=== PATIENT | male | born 1990 | race Caucasian/White ===

== ENCOUNTER 2022-05-03 19:45 | Emergency (ER) | payer SELFPAY ==
[2022-05-03] MEDS ORDERED: Acetaminophen 500 MG TAB ONE (20:55)
[2022-05-03] MEDS ORDERED: Cyclobenzaprine 10 MG TAB ONE (20:55)
[2022-05-03] MEDS ORDERED: Ketorolac Tromethamine 30 MG/ML VIAL ONE (20:55)
== END 2022-05-03 21:38 | disposition home or self-care (01) ==
LOC: CSHERS 19:45
DX: M54.41 Lumbago with sciatica, right side (principal); F17.210 Nicotine dependence, cigarettes, uncomplicated; F17.220 Nicotine dependence, chewing tobacco, uncomplicated
CPT/HCPCS: 96372; 99283; J1885